=== PATIENT | male | born 1955 | race Caucasian/White ===

== ENCOUNTER 2016-03-30 11:41 | Emergency (ER) | payer OTHER ==
[~2016-03-30] VITALS: Wt 104.0 kg
--- NOTE | 2016-03-30 12:29 | RADRPT ---
PROCEDURE: US Lower extremity Venous. CLINICAL INDICATION: Left leg swelling TECHNIQUE: Multiple sonographic images of the left lower extremity deep venous system was obtained utilizing grayscale, color-flow, compressive sonography and doppler imaging with augmentation. The images were reviewed on a PACS workstation. COMPARISON: None. FINDINGS: There is normal compressibility and flow within the left common femoral, superficial femoral, fitness director ior tibial, peroneal and popliteal veins. RPTAT: AA IMPRESSION: No sonographic evidence for deep venous thrombosis. .Ashutosh Tan MD, MD Date Time Electronically viewed and signed by .Ashutosh Tan MD, on 03/30/2016 12:29 .S/
[2016-03-30] MEDS ORDERED: IBUP800T25 PO (12:35)
[2016-03-30] MEDS ORDERED: DIAZ5TAB4 PO (12:35)
--- NOTE | 2016-03-30 12:35 | ERD ---
ER Documentation Chief Complaint Date/Time DATE: 03/30/16 TIME: 12:32 Chief Complaint LEFT LOWER LEG PAIN PROGRESSIVE FOR 4 WKS. NO SOB NO CP. HPI This is a 60-year-old male who presents to the emergency room for evaluation of left leg pain. The patient states he has had pain for 4 weeks duration. He denies any trauma. He says it is an achy pain which radiates sometimes to his calf. The patient was seen in urgent care and was referred to the emergency room for rule out DVT. This patient does state that he has had to recent trips where he has been in a car for a long period of time. He is not on any hormones , no recent surgery. The patient came to the ER for evaluation. He is denying any chest pain or palpitations or shortness of breath at this time. ROS All systems reviewed and are negative except as per history of present illness. PMhx/Soc History of Surgery: Yes (TONSILLECTOMY , APPY ) Anesthesia Reaction: No Hx Neurological Disorder: No Hx Respiratory Disorders: No Hx Cardiac Disorders: Yes (HTN ) Hx Psychiatric Problems: Yes (DEPRESSION ) Hx Miscellaneous Medical Probl: Yes Hx Alcohol Use: No Hx Substance Use: No Hx Tobacco Use: No Smoking Status: Former smoker Physical Exam Vitals Vital Signs Date Time Temp Pulse Resp B/P Pulse Ox O2 Delivery O2 Flow Rate FiO2 03/30/16 11:44 98.4 59 21 160/94 100 Physical Exam INITIAL VITAL SIGNS: Reviewed by me GENERAL: The patient is well developed and appropriate for usual state of health in no apparent distress HEENT: Pupils equal, round, and reactive to light. EOMI. There is no scleral icterus. NECK: C-spine is soft and supple, there is no meningismus. There is no cervical lymphadenopathy. LUNGS: Clear to auscultation bilaterally. There are no rales, wheezes or rhonchi. HEART: Regular rate and rhythm, no murmurs, clicks, rubs or gallops. ABDOMEN: Soft, non-tender, non-distended. There are bowel sounds in all four quadrants. No rebound or guarding. EXTREMITIES: No calf swelling or tenderness, there is no peripheral cyanosis or edema. No focal swelling or erythema. NEUROLOGICAL: The patient moves all four extremities with 5/5 strength. Cranial nerves II - XII are intact. Normal gait. Alert and oriented SKIN: There is no apparent rash or petechiae. HEME/LYMPHATIC: There is no evidence of excessive bruising or lymphedema. PSYCHIATRIC: The patient does not appear anxious or depressed. Procedures/MDM Ultrasound left lower extremity: No DVT This 60-year-old male presents to the ER for left lower extremity pain and achiness. The patient denies any trauma to the area. He was referred to the ER for rule out DVT. He does have risk factors for possible DVT due to the fact that he is a too long car trips in the past month. The patient had no calf tenderness on my examination. An ultrasound does not reveal any DVT. This patient will be discharged home at this time with a prescription for Motrin , and Valium to take at nighttime for muscle spasms. Departure Diagnosis: Primary Impression: Pain of left leg Additional Impression: Muscular pain Condition: Stable JAIME MEDINA DO Mar 30, 2016 12:35
[2016-03-30 12:49] VITALS: BP 140/83; PULSE 63; RESP 20; TEMP 98.3
== END 2016-03-30 12:51 | disposition home or self-care (01) ==
LOC: E/R 11:41
DX: M79.605 Pain in left leg (principal); M79.1 Myalgia; I10 Essential (primary) hypertension; Z87.891 Personal history of nicotine dependence
CPT/HCPCS: 93971; Z7502

== ENCOUNTER → 2017-08-03 | Emergency (ER) | END | disposition home or self-care (01) ==

== ENCOUNTER 2018-01-13 15:40 | Emergency (ER) | END 2018-01-13 19:38 | disposition home or self-care (01) ==

== ENCOUNTER 2018-03-15 10:51 | Emergency (ER) | payer OTHER ==
[~2018-03-15] VITALS: Ht 180.3 cm; Wt 97.5 kg
[~2018-03-15 10:51] MED LIST: AMLO5TAB4 PO; AMOX500C2 PO; DIAZ5TAB4 PO; FLUT9.9S NASAL; HYDR25TA6 PO; IBUP-1544 PO; LEVO88TA42 PO; LISI40TA3 PO; LORA-441 PO; TAMS-14 PO
[2018-03-15 10:57] VITALS: Ht 180.3 cm; Wt 97.5 kg
--- NOTE | 2018-03-15 11:03 | ERD ---
ER Documentation Chief Complaint Chief Complaint cath bag leaking, placed on 02/13/18 HPI 62-year-old male with a history of obstructive uropathy and chronic indwelling Shah presents the ED for evaluation of leaking leg bag. Otherwise asymptomatic. No abdominal pain, penile pain or discharge. No fevers or chills. ROS Reviewed and are negative except as per history of present illness. Medications Home Meds Active Scripts Hydrochlorothiazide* (Hydrochlorothiazide*) 25 Mg Tab, 25 MG PO DAILY, #30 TAB Prov:MARGAUX CHRISTENSEN MD 08/03/17 Lorazepam* (Ativan*) 0.5 Mg Tablet, 0.5 MG PO BID for 5 Days, #10 TAB Prov:MARGAUX CHRISTENSEN MD 08/03/17 Diazepam* (Diazepam*) 5 Mg Tablet, 5 MG PO QHS for 3 Days, #3 TAB Prov:JAIME MEDINA DO 03/30/16 Ibuprofen* (Ibuprofen*) 800 Mg Tablet, 800 MG PO Q8 for 10 Days, #30 TAB Prov:JAIME MEDINA DO 03/30/16 Reported Medications Fluticasone Propionate (Flonase Allergy Relief) 9.9 Ml [place].susp, 1 SPRAY NASAL BID, #1 BOTTLE TO EACH NOSTRIL 01/13/18 Lisinopril* (Lisinopril*) 40 Mg Tablet, 40 MG PO DAILY, #30 TAB 01/13/18 Tamsulosin Hcl* (Flomax*) 0.4 Mg Cap.er.24h, 0.4 MG PO DAILY, CAP 01/13/18 Amoxicillin* (Amoxicillin*) 500 Mg Cap, 500 MG PO Q8, #30 CAP 01/13/18 Levothyroxine Sodium* (Levoxyl*) 88 Mcg Tablet, 88 MCG PO BEFORE BREAKFAST, #30 TAB 01/13/18 Amlodipine Besylate* (Norvasc*) 5 Mg Tablet, 5 MG PO DAILY, TAB 01/13/18 Allergies Allergies: Coded Allergies: No Known Allergy (Unverified , 01/13/18) PMhx/Soc History of Surgery: Yes (TONSILLECTOMY , APPY ) Anesthesia Reaction: No Hx Neurological Disorder: No Hx Respiratory Disorders: No Hx Cardiac Disorders: Yes (HTN ) Hx Psychiatric Problems: Yes (DEPRESSION ) Hx Miscellaneous Medical Probl: Yes (hypothyroid ) Hx Alcohol Use: No Hx Substance Use: No Hx Tobacco Use: No Physical Exam Vitals Vital Signs Date Temp Pulse Resp B/P (MAP) Pulse Ox O2 O2 Flow FiO2 Time Delivery Rate 03/15/18 98.6 78 16 154/84 99 10:57 (107) Physical Exam Const: No acute distress Head: Atraumatic Eyes: Normal Conjunctiva ENT: Normal External Ears, Nose and Mouth. Neck: Full range of motion. No meningismus. Resp: Clear to auscultation bilaterally Cardio: Regular rate and rhythm, no murmurs Abd: Soft, non tender, non distended. Normal bowel sounds Skin: No petechiae or rashes Back: No midline or flank tenderness Ext: No cyanosis, or edema Neur: Awake and alert Psych: Normal Mood and Affect Procedures/MDM DOCUMENTS REVIEWED: ED nurse, Prior records MEDICAL DECISION MAKIN-year-old male with a history of obstructive uropathy and chronic indwelling Shah presents the ED for evaluation of leaking leg bag. Otherwise asymptomatic. Leg bag changed. No further leakage. No symptoms of UTI or catheter obstruction. Stable for discharge with precautionary instructiongs and outpatient urology followup as scheduled. Though the patient's latest blood pressure was elevated (>120/80), the patient has a known history of hypertension and urged to pursue adjustment of their medical therapy within a week with their primary care physician. Please refer to the medication reconciliation form for the current list of hypertensive medications. Departure Diagnosis: Primary Impression: Leakage from urinary catheter Encounter type: initial encounter Qualified Codes: T83.038A - Leakage of other urinary catheter, initial encounter Condition: Stable STACEY CEJA MD Mar 15, 2018 11:03
== END 2018-03-15 11:55 | disposition home or self-care (01) ==
LOC: E/R 10:51
DX: T83.038A Leakage of other urinary catheter, initial encounter (principal); I10 Essential (primary) hypertension; E03.9 Hypothyroidism, unspecified; Y73.2 Prosthetic and other implants, materials and accessory gastroenterology and urology devices associated with adverse incidents
CPT/HCPCS: 51702; Z7502

== ENCOUNTER 2018-05-01 11:15 | Inpatient (IN) | payer OTHER ==
[~2018-05-01] VITALS: Ht 180.3 cm; Wt 99.2 kg
[~2018-05-01 11:15] MED LIST changes: +CEFTRIAXONE 1 GM/NS 50 ML IVPB ONE
[2018-05-23] VITALS (23 sets, daily range): BP systolic 108–145; BP diastolic 63–95; PULSE 58–125; RESP 7–41; Ht 180.3 cm; Wt 99.2 kg
[2018-05-23] MEDS ORDERED: SEVOFLURANE 15 MIN ONE (07:00)
[2018-05-23] MEDS ORDERED: CEFTRIAXONE 1 GM/NS 50 ML IVPB ONE (10:00)
[2018-05-23] MEDS ORDERED: AZEL137S9 NASAL (11:13)
--- NOTE | 2018-05-23 12:22 | HPN ---
Date/Time of Note Date/Time of Note DATE: 05/23/18 TIME: 12:21 Interval H&P Admission Note Pt. seen H&P reviewed: No system changes SWAPNA FAUSTIN MD May 23, 2018 12:22
--- NOTE | 2018-05-23 12:36 | PREAC ---
Date/Time of Note Date/Time of Note DATE: 05/23/18 TIME: 12:35 Anesthesia Eval and Record Evaluation Time Pre-Procedure Interview DATE: 05/23/18 TIME: 12:35 Age 62 Sex male NPO: 8 hrs Preoperative diagnosis BPH Planned procedure TURP Past Medical History Past Medical History: Includes Cardio: HTN Endo: Hypothyroid Surgery & Anesthesia Issues No known issue Meds Anticoagulation: No Beta Milton within 24 hr: No Reason Beta Milton not given: Pt. not on B-[place] Reported Medications Azelastine Hcl* (Azelastine Hcl*) 137 Mcg/0.137 Ml [place].pump, 2 SPRAYS NASAL BID PRN for ALLERGIC REACTION, #1 EA TO EACH NOSTRIL 05/23/18 Fluticasone Propionate (Flonase Allergy Relief) 9.9 Ml [place].susp, 1 SPRAY NASAL BID, #1 BOTTLE TO EACH NOSTRIL 01/13/18 Lisinopril* (Lisinopril*) 40 Mg Tablet, 20 MG PO DAILY, #30 TAB 01/13/18 Levothyroxine Sodium* (Levoxyl*) 88 Mcg Tablet, 88 MCG PO BEFORE BREAKFAST, #30 TAB 01/13/18 Amlodipine Besylate* (Norvasc*) 5 Mg Tablet, 2.5 MG PO DAILY, TAB 01/13/18 Discontinued Reported Medications Tamsulosin Hcl* (Flomax*) 0.4 Mg Cap.er.24h, 0.4 MG PO DAILY, CAP 01/13/18 Amoxicillin* (Amoxicillin*) 500 Mg Cap, 500 MG PO Q8, #30 CAP 01/13/18 Discontinued Scripts Hydrochlorothiazide* (Hydrochlorothiazide*) 25 Mg Tab, 25 MG PO DAILY, #30 TAB Prov:MARGAUX CHRISTENSEN MD 08/03/17 Lorazepam* (Ativan*) 0.5 Mg Tablet, 0.5 MG PO BID for 5 Days, #10 TAB Prov:MARGAUX CHRISTENSEN MD 08/03/17 Diazepam* (Diazepam*) 5 Mg Tablet, 5 MG PO QHS for 3 Days, #3 TAB Prov:JAIME MEDINA DO 03/30/16 Ibuprofen* (Ibuprofen*) 800 Mg Tablet, 800 MG PO Q8 for 10 Days, #30 TAB Prov:JAIME MEDINA DO 03/30/16 Meds reviewed: Yes Allergies Coded Allergies: No Known Allergy (Unverified , 05/23/18) Allergies Reviewed: Yes Labs/Studies Labs Reviewed: Reviewed by anesthesiologist test: N/A Studies: ECG (n/a), CXR (n/a) Pre-procedure Exam Last vitals Vital Signs Date Temp Pulse Resp B/P (MAP) Pulse Ox O2 O2 Flow FiO2 Time Delivery Rate 05/23/18 98.4 64 16 126/81 97 11:27 (96) Airway: Adequate mouth opening, Adequate thyromental dist Mallampati: Mallampati II Teeth: Normal Lung: Normal Heart: Normal ASA Physical Status ASA physical status: 2 Emergency: None Planned Anesthetic General/MAC: ETT Planned Pain Management Parenteral pain med Pre-operative Attestations Prior to commencing anesthesia and surgery, the patient was re-evaluated, there was verification of: *The patient's identity *The results of appropriate recent lab work and preoperative vital signs *The above evaluation not changing prior to induction *Anesthetic plan, risk benefits, alternative and complications discussed with patient/family; questions answered; patient/family understands, accepts and wishes to proceed. AURY DEL ROSARIO MD May 23, 2018 12:36
[2018-05-23] MEDS ORDERED: PROPOFOL 20 ML ONE (12:39)
[2018-05-23] MEDS ORDERED: FENTAnyl 50 MCG/ML VIAL ONE (12:39)
[2018-05-23] MEDS ORDERED: ROCURONIUM 50 MG INJ ONE (12:39)
[2018-05-23] MEDS ORDERED: MIDAZOLAM 1 MG/ML 2 ML INJ ONE (12:39)
[2018-05-23] MEDS ORDERED: KETOROLAC 30 MG INJ ONE (13:27)
[2018-05-23] MEDS ORDERED: PHENYLephrine (100 MCG/ML) 10ML SYG ONE (13:27)
[2018-05-23] MEDS ORDERED: METOCLOPRAMIDE 10 MG INJ ONE (13:27)
[2018-05-23] MEDS ORDERED: DEXAMETHASONE 4 MG/ML 5 ML INJ ONE (13:27)
[2018-05-23] MEDS ORDERED: ONDANSETRON 4 MG INJ ONE (13:27)
[2018-05-23] MEDS ORDERED: EPHEDrine SULFATE 50 MG/5 ML SYG IV PRN (13:30)
[2018-05-23] MEDS ORDERED: ONDANSETRON 4 MG INJ IV PRN (13:30)
[2018-05-23] MEDS ORDERED: HYDROmorphONE 1 MG/5 ML IV SYRINGE IV PRN ×3 (13:30)
[2018-05-23] MEDS ORDERED: FENTAnyl 50 MCG/ML VIAL IV PRN ×3 (13:30)
[2018-05-23] MEDS ORDERED: hydrALAzine 20 MG INJ IV PRN (13:30)
[2018-05-23] MEDS ORDERED: METOCLOPRAMIDE 10 MG INJ IV PRN (13:30)
[2018-05-23] MEDS ORDERED: OXYCODONE/ACETAMINOPHEN (5/325) TAB PO PRN (13:30)
[2018-05-23] MEDS ORDERED: LABETALOL HCL 20MG INJ IV PRN (13:30)
[2018-05-23] MEDS ORDERED: GLYCOPYRROLATE 0.4 MG INJ ONE (13:38)
[2018-05-23] MEDS ORDERED: NEOSTIGMINE 3 MG/3 ML SYRINGE ONE (13:39)
--- NOTE | 2018-05-23 13:54 | OPR ---
Date/Time of Note Date/Time of Note DATE: 05/23/18 TIME: 13:49 Operative Report Procedure Date: May 23, 2018 Preoperative Diagnosis Benign prostatic hypertrophy and urinary retention Postoperative Diagnosis Same pending pathology report Operation/Procedure Performed Trans-urethral resection of the prostate Surgeon see signature line Flatwork Washer Pasha Patterson Anesthesia Type: general Anesthesiologist: AURY DEL ROSARIO MD Estimated Blood Loss: 50 - 100 ml's Transfusion none Specimen Prostatic tissue and urine culture Grafts/Implants none Complications none Pt Condition Post Procedure: stable Disposition: PACU Indications Benign prostatic hypertrophy and urinary retention not responding to medications Procedure Description The patient was brought to the operating room and general anesthesia was induced. Timeout was done, the patient was identified by his name, birthdate and the procedure. The patient was given 1 g of ceftriaxone IV at the start of the procedure. The Shah catheter that he had was removed. The genital area was then prepped and draped in the usual sterile manner. Cystoscopy was done with a 22 [place] cystoscope and it showed prostatic enlargement with obstruction. The bladder was trabeculated. There was no bladder tumors or stones. Urine was collected for culture and sensitivity. The cystoscope was then removed and the urethra was dilated with the [place] dilators up to #30 Mongolian. The 26 Mongolian bipolar resectoscope sheath was then introduced under direct vision through the penile urethra all the way to the bladder. Then the resection of the prostate was started. First the median lobe was resected then the right lateral lobe then the left lateral lobe and finally the anterior lobe as well as apical tissue. All the bleeders were electrocoagulated. All the prostatic chips were evacuated. Good hemostasis was obtained. The ureteral orifices as well as external sphincter were intact and safeguarded during the whole procedure. At the end of the procedure the resectoscope was removed and #24 [place]ian three-way Shah catheter was inserted into the bladder. The balloon was inflated with 45 mL of sterile water. The catheter was connected to a drainage bag and continuous bladder irrigation was started in the operating room with normal saline. The patient was transferred to the recovery room in stable and satisfactory condition. SWAPNA FAUSTIN MD May 23, 2018 13:54
[2018-05-23] MEDS ORDERED: DOCUSATE SODIUM 100 MG CAP PO PRN (14:00)
[2018-05-23] MEDS ORDERED: MAGNESIUM HYDROXIDE 30ML CUP PO PRN (14:00)
--- NOTE | 2018-05-23 14:10 | PAC ---
Date/Time of Note Date/Time of Note DATE: 05/23/18 TIME: 14:10 Post-Anesthesia Notes Post-Anesthesia Note Last documented vital signs Vital Signs Date Temp Pulse Resp B/P (MAP) Pulse Ox O2 O2 Flow FiO2 Time Delivery Rate 05/23/18 98.4 64 16 126/81 97 14:07 (96) Activity: WNL Respiratory function: WNL Cardiovascular function: WNL Mental status: Baseline Pain reasonably controlled: Yes Hydration appropriate: Yes Nausea/Vomiting absent: Yes AURY DEL ROSARIO MD May 23, 2018 14:10
--- NOTE | 2018-05-23 15:37 | HP ---
Date/Time of Note Date/Time of Note DATE: 05/23/18 TIME: 15:35 Assessment/Plan VTE Prophylaxis Risk score (from Nsg)>0 risk: 4 SCD applied (from Ns): Yes Pharmacological prophylaxis: NA/contraindicated Pharm contraindication: surgical contra Lines/Catheters IV Catheter Type (from Nrsg): Peripheral IV Assessment/Plan Hospital Course 1. BPH status post TURP postop day 0 Bladder irrigation overnight Pain control 2. Hypertension Continue home meds 3. Hypothyroidism Continue home Synthroid Prophylaxis: SCDs HPI/ROS Admit Date/Time Admit Date/Time May 23, 2018 at 10:33 Hx of Present Illness Patient is a 62-year-old male with a history of hypertension, hypothyroidism, BPH who presents for elective TURP. Patient currently has no complaints and is receiving continuous bladder irrigation. ROS Constitutional: no complaints, improved Eyes: no complaints ENT: no complaints Respiratory: no complaints Cardiovascular: no complaints Gastrointestinal: no complaints Genitourinary: no complaints Musculoskeletal: no complaints Skin: no complaints Neurologic: no complaints Endocrine: no complaints Lymphatic: no complaints Psychological: no complaints, nl mood/affect Immunologic: no complaints PMH/Family/Social Past Medical History Hypertension, hypothyroidism, BPH Medications Current Medications Hydromorphone HCl (Dilaudid) 0.2 mg PACU PRN IV MILD PAIN 1-3; Start 05/23/18 at 13:30; Stop 05/23/18 at 17:30 Hydromorphone HCl (Dilaudid) 0.4 mg PACU PRN IV MOD PAIN 4-6; Start 05/23/18 at 13:30; Stop 05/23/18 at 17:30 Hydromorphone HCl (Dilaudid) 0.6 mg PACU PRN IV SEVERE PAIN 7-10; Start 05/23/18 at 13:30; Stop 05/23/18 at 17:30 Fentanyl (Sublimaze) 25 mcg PACU ORDER PRN IV MILD PAIN 1-3; Start 05/23/18 at 13:30; Stop 05/23/18 at 17:30 Fentanyl (Sublimaze) 50 mcg PACU ORDER PRN IV MOD PAIN 4-6 Last administered on 05/23/18at 14:14; Admin Dose 50 MCG; Start 05/23/18 at 13:30; Stop 05/23/18 at 17:30 Fentanyl (Sublimaze) 75 mcg PACU ORDER PRN IV SEVERE PAIN 7-10; Start 05/23/18 at 13:30; Stop 05/23/18 at 17:30 Oxycodone/ Acetaminophen (Percocet (5/ 325)) 1 tab PACU ORDER PRN PO .PAIN 1-5; Start 05/23/18 at 13:30; Stop 05/23/18 at 17:30 Ondansetron HCl (Zofran Inj) 4 mg PACU ORDER PRN IV NAUSEA/VOMITING Last administered on 05/23/18at 14:16; Admin Dose 4 MG; Start 05/23/18 at 13:30; Stop 05/23/18 at 17:30 Metoclopramide HCl (Reglan) 10 mg PACU ORDER PRN IV NAUSEA/VOMITING; Start 05/23/18 at 13:30; Stop 05/23/18 at 17:30 Labetalol HCl (Labetalol) 5 mg PACU ORDER PRN IV HIGH BLOOD PRESSURE; Start 05/23/18 at 13:30; Stop 05/23/18 at 17:30 Hydralazine HCl (Apresoline) 5 mg PACU ORDER PRN IV HIGH BLOOD PRESSURE; Start 05/23/18 at 13:30; Stop 05/23/18 at 17:30 Ephedrine Sulfate 5 mg PACU ORDER PRN IV BLOOD PRESSURE SUPPORT; Start 05/23/18 at 13:30; Stop 05/23/18 at 17:30 Dextrose/Sodium Chloride 1,000 ml @ 50 mls/hr Q20H IV ; Start 05/23/18 at 13:44 Docusate Sodium (Colace) 100 mg BID PRN PO CONSTIPATION; Start 05/23/18 at 14:00 Magnesium Hydroxide (Milk Of Mag) 30 ml DAILY PRN PO CONSTIPATION; Start at 14:00 Amlodipine Besylate (Norvasc) 2.5 mg DAILY PO ; Start 05/23/18 at 15:00 Fluticasone Propionate (Flonase 0.05% Nasal) 1 spray BID NASAL ; Start 05/23/18 at 14:00 Levothyroxine Sodium (Synthroid) 88 mcg BEFORE BREAKFAST PO ; Start 05/24/18 at 07:00 Lisinopril (Zestril) 20 mg DAILY PO ; Start 4/12/19 at 14:00 Ceftriaxone Sodium 50 ml @ 100 mls/hr Q24H IVPB ; Start 05/23/18 at 16:00 Coded Allergies: No Known Allergy (Unverified , 05/23/18) Family History Significant Family History: no pertinent family hx Social History Alcohol Use: rarely Smoking Status: Former smoker Drug Use: none Exam/Review of Systems Vital Signs Vitals Vital Signs Date Temp Pulse Resp B/P (MAP) Pulse Ox O2 O2 Flow FiO2 Time Delivery Rate 05/23/18 70 16 130/82 94 Room Air 14:33 (98) 05/23/18 98.3 13:53 05/23/18 8.0 13:53 Exam Constitutional: alert, oriented Respiratory: clear to auscultation Cardiovascular: regular rate and rhythm Gastrointestinal: soft; No distended Musculoskeletal: nl extremities to inspection MANUELA RENDON May 23, 2018 15:37
[2018-05-23] MEDS: LISINOPRIL 20 MG TAB PO SCH (16:41)
[2018-05-23] MEDS: DEXTROSE 5%-0.45% NACL 1,000 ML IV SCH (17:06)
[2018-05-23] MEDS: AMLODIPINE 2.5 MG TAB PO SCH (17:07)
[2018-05-23] MEDS: CEFTRIAXONE 1 GM/NS 50 ML IVPB SCH (17:08)
[2018-05-23] MEDS: FLUTICASONE 0.05% 16 GM NAS SPRAY NASAL SCH ×2 (21:00→22:31)
[2018-05-24 00:10] VITALS: BP 114/69; PULSE 68; RESP 16
[2018-05-24] MEDS ORDERED: LEVOTHYROXINE 88 MCG TAB PO SCH (07:00)
[2018-05-24 07:47] VITALS: BP 122/73; PULSE 71; RESP 18
[2018-05-24] MEDS ORDERED: CEFTRIAXONE 1 GM INJ IVPB SCH (09:00)
[2018-05-24] MEDS: LISINOPRIL 20 MG TAB PO SCH (09:55)
[2018-05-24] MEDS: FLUTICASONE 0.05% 16 GM NAS SPRAY NASAL SCH (09:56)
[2018-05-24] MEDS: AMLODIPINE 2.5 MG TAB PO SCH (10:02)
[2018-05-24] MEDS: DEXTROSE 5%-0.45% NACL 1,000 ML IV SCH (10:04)
[2018-05-24] MEDS ORDERED: DIPHENHYDRAMINE 25 MG CAP PO PRN (11:00)
--- NOTE | 2018-05-24 11:41 | PN ---
Date/Time of Note Date/Time of Note DATE: 05/24/18 TIME: 11:40 Assessment/Plan VTE Prophylaxis Risk score (from Ns)>0 risk: 7 SCD applied (from Ns): Yes Pharmacological prophylaxis: NA/contraindicated Pharm contraindication: surgical contra Lines/Catheters IV Catheter Type (from Nrs): Peripheral IV Assessment/Plan Hospital Course 1. BPH status post TURP postop day 1 Patient is receiving bladder irrigation, no significant hematuria noted Pain control 2. Hypertension Continue home meds 3. Hypothyroidism Continue home Synthroid Prophylaxis: SCDs DC planning: Likely DC per urology today Result Diagram: 05/24/18 0439 Results 24hrs Laboratory Tests Test 05/24/18 04:39 05/24/18 07:19 White Blood Count 11.7 H Red Blood Count 4.26 L Hemoglobin 12.8 L Hematocrit 37.9 L Mean Corpuscular Volume 89.0 Mean Corpuscular Hemoglobin 30.0 Mean Corpuscular Hemoglobin Concent 33.8 Red Cell Distribution Width 12.1 Platelet Count 215 # Mean Platelet Volume 11.1 H Immature Granulocytes % 0.400 Neutrophils % 91.6 H Lymphocytes % 7.0 L Monocytes % 0.9 Eosinophils % 0.0 Basophils % 0.1 Nucleated Red Blood Cells % 0.0 Immature Granulocytes # 0.050 H Neutrophils # 10.7 H Lymphocytes # 0.8 Monocytes # 0.1 L Eosinophils # 0.0 Basophils # 0.0 Nucleated Red Blood Cells # 0.0 Phosphorus Level 3.4 Magnesium Level 2.1 Lab Scanned Report REFERENCE LAB Subjective 24 Hr Interval Summary Constitutional: no complaints Exam/Review of Systems Exam Vitals Vital Signs Date Temp Pulse Resp B/P (MAP) Pulse Ox O2 O2 Flow FiO2 Time Delivery Rate 05/24/18 98.3 71 18 122/73 96 Room Air 07:47 (89) 05/23/18 8.0 13:53 Intake and Output 05/23/18 05/23/18 05/24/18 1515:00 23:00 07:00 IntakeIntake Total 1500 ml 600 ml OutputOutput Total 5 ml 5800 ml BalanceBalance 1495 ml -5800 ml 600 ml Constitutional: alert, oriented Respiratory: clear to auscultation Cardiovascular: regular rate and rhythm Gastrointestinal: soft; No distended Musculoskeletal: nl extremities to inspection Results Results 24hrs Laboratory Tests Test 05/24/18 04:39 05/24/18 07:19 White Blood Count 11.7 H Red Blood Count 4.26 L Hemoglobin 12.8 L Hematocrit 37.9 L Mean Corpuscular Volume 89.0 Mean Corpuscular Hemoglobin 30.0 Mean Corpuscular Hemoglobin Concent 33.8 Red Cell Distribution Width 12.1 Platelet Count 215 # Mean Platelet Volume 11.1 H Immature Granulocytes % 0.400 Neutrophils % 91.6 H Lymphocytes % 7.0 L Monocytes % 0.9 Eosinophils % 0.0 Basophils % 0.1 Nucleated Red Blood Cells % 0.0 Immature Granulocytes # 0.050 H Neutrophils # 10.7 H Lymphocytes # 0.8 Monocytes # 0.1 L Eosinophils # 0.0 Basophils # 0.0 Nucleated Red Blood Cells # 0.0 Phosphorus Level 3.4 Magnesium Level 2.1 Lab Scanned Report REFERENCE LAB Medications Medication Current Medications Dextrose/Sodium Chloride 1,000 ml @ 50 mls/hr Q20H IV Last administered on 05/24/18at 10:04; Admin Dose 50 MLS/HR; Start 05/23/18 at 13:44 Docusate Sodium (Colace) 100 mg BID PRN PO CONSTIPATION; Start 05/23/18 at 14:00 Magnesium Hydroxide (Milk Of Mag) 30 ml DAILY PRN PO CONSTIPATION; Start 05/23/18 at 14:00 Fluticasone Propionate (Flonase 0.05% Nasal) 1 spray BID NASAL Last administered on 05/24/18at 09:56; Admin Dose 1 SPRAY; Start 05/23/18 at 14:00 Levothyroxine Sodium (Synthroid) 88 mcg BEFORE BREAKFAST PO Last administered on 05/24/18at 10:11; Admin Dose 88 MCG; Start 05/24/18 at 07:00 Lisinopril (Zestril) 20 mg DAILY PO Last administered on 05/24/18at 09:55; Admin Dose 20 MG; Start 05/23/18 at 14:00 Ceftriaxone Sodium 50 ml @ 100 mls/hr Q24H IVPB Last administered on 05/23/18at 17:08; Admin Dose 100 MLS/HR; Start 05/23/18 at 16:00 Amlodipine Besylate (Norvasc) 2.5 mg DAILY@2100 PO ; Start 05/24/18 at 21:00 Diphenhydramine HCl (Benadryl) 25 mg Q8H PRN PO ITCHING Last administered on 05/24/18at 11:18; Admin Dose 25 MG; Start 05/24/18 at 11:00 MANUELA RENDON May 24, 2018 11:41
[2018-05-24 14:48] VITALS: BP 112/65; PULSE 74; RESP 18
[2018-05-24] MEDS: CEFTRIAXONE 1 GM/NS 50 ML IVPB SCH (16:58)
--- NOTE | 2018-05-24 18:24 | PDOCDIS ---
Discharge Instructions CONDITION [id number] Patient Condition: [id number] Good HOME CARE INSTRUCTIONS: [id number] Diet Instructions: [id number] Regular ACTIVITY: [id number] Activity Restrictions: [id number] Slowly Increase Activity Rest between Activity Avoid heavy lifting No Sexual Activity Do not Drive Do not operate Machinery Avoid Heavy Housework [id number] Bathing Restrictions: [id number] Shower (May take a shower, just dry the tubing and the drainage bag when you are done) FOLLOW UP/APPOINTMENTS Follow-up Plan Follow-up with next week on Saturday or to remove the Shah catheter. Call [phone] for an appointment on Saturday SWAPNA FAUSTIN MD May 24, 2018 18:24
--- NOTE | 2018-05-24 18:28 | DS ---
Date/Time of Note Date/Time of Note DATE: 05/24/18 TIME: 18:26 Discharge Summary Admission/Discharge Info Admit Date/Time May 23, 2018 at 10:33 Discharge Date/Time May 24, 2018 1830 p.m. Discharge Diagnosis Benign prostatic hypertrophy and urinary retention, pending pathology report Patient Condition: Good Hospital Course Patient underwent transurethral resection of the prostate on 05/23/2018. He had continuous bladder irrigation and the return from the irrigation today is water clear. Therefore the irrigation was stopped and the irrigation port was plugged with a catheter plug. The Shah catheter is connected to a leg bag. The patient will be discharged home with the Shah and the leg bag and come to the office in about 4-5 days to remove the Shah catheter. Home Meds Reported Medications Azelastine Hcl* (Azelastine Hcl*) 137 Mcg/0.137 Ml [place].pump, 2 SPRAYS NASAL BID PRN for ALLERGIC REACTION, #1 EA TO EACH NOSTRIL 05/23/18 Fluticasone Propionate (Flonase Allergy Relief) 9.9 Ml [place].susp, 1 SPRAY NASAL BID, #1 BOTTLE TO EACH NOSTRIL 01/13/18 Lisinopril* (Lisinopril*) 40 Mg Tablet, 20 MG PO DAILY, #30 TAB 01/13/18 Levothyroxine Sodium* (Levoxyl*) 88 Mcg Tablet, 88 MCG PO BEFORE BREAKFAST, #30 TAB 01/13/18 Amlodipine Besylate* (Norvasc*) 5 Mg Tablet, 2.5 MG PO DAILY, TAB 01/13/18 Discontinued Reported Medications Tamsulosin Hcl* (Flomax*) 0.4 Mg Cap.er.24h, 0.4 MG PO DAILY, CAP 01/13/18 Amoxicillin* (Amoxicillin*) 500 Mg Cap, 500 MG PO Q8, #30 CAP 01/13/18 Discontinued Scripts Hydrochlorothiazide* (Hydrochlorothiazide*) 25 Mg Tab, 25 MG PO DAILY, #30 TAB Prov:MARGAUX CHRISTENSEN MD 08/03/17 Lorazepam* (Ativan*) 0.5 Mg Tablet, 0.5 MG PO BID for 5 Days, #10 TAB Prov:MARGAUX CHRISTENSEN MD 08/03/17 Diazepam* (Diazepam*) 5 Mg Tablet, 5 MG PO QHS for 3 Days, #3 TAB Prov:ADAMJAIME ARMENTA 03/30/16 Ibuprofen* (Ibuprofen*) 800 Mg Tablet, 800 MG PO Q8 for 10 Days, #30 TAB Prov:JAIME MEDINA 03/30/16 Follow-up Plan Follow-up with next week on Saturday or to remove the Shah catheter. Call [phone] for an appointment on Saturday Primary Care Provider [facility] Time spent on discharge: < 30 minutes Pending Labs Laboratory Tests Test 05/24/18 04:39 05/24/18 07:19 05/24/18 13:23 White Blood Count 11.7 10^3/ul (4.8-10.8) Red Blood Count 4.26 10^6/ul (4.70-6.10) Hemoglobin 12.8 g/dl (14.0-18.0) Hematocrit 37.9 % (42.0-52.0) Mean Corpuscular 89.0 Volume fl (82.0-101.0) Mean Corpuscular 30.0 pg (29.0-33.0) Hemoglobin Mean Corpuscular 33.8 Hemoglobin Concent g/dl (32.0-37.0) Red Cell 12.1 % (11.5-14.5) Distribution Width Platelet Count 215 10^3/UL (140-415) Mean Platelet 11.1 fl (7.4-10.4) Volume Immature 0.400 Granulocytes % % (0.001-0.429) Neutrophils % 91.6 % (39.0-77.0) Lymphocytes % 7.0 % (15.0-51.0) Monocytes % 0.9 % (0.0-11.0) Eosinophils % 0.0 % (0.0-7.0) Basophils % 0.1 % (0.0-2.0) Nucleated Red Blood 0.0 Cells % /100WBC (0.0-0.0) Immature 0.050 Granulocytes # 10^3/ul (0.0-0.031) Neutrophils # 10.7 10^3/ul (1.6-7.5) Lymphocytes # 0.8 10^3/ul (0.8-2.9) Monocytes # 0.1 10^3/ul (0.3-0.9) Eosinophils # 0.0 10^3/ul (0.0-0.5) Basophils # 0.0 10^3/ul (0.0-0.1) Nucleated Red Blood 0.0 Cells # 10^3/ul (0.0-0.0) Phosphorus Level 3.4 mg/dl (2.5-4.9) Magnesium Level 2.1 mg/dl (1.7-2.5) Lab Scanned Report [facility] [id number] Sodium Level 138 mmol/L (135-144) Potassium Level 4.6 mmol/L (3.5-5.1) Chloride Level 101 mmol/L (97-110) Carbon Dioxide 27 mmol/L (21-31) Level Anion Gap 10 (5-13) Blood Urea 29 mg/dl (7-20) Nitrogen Creatinine 1.40 mg/dl (0.61-1.24) Est Glomerular 52 mL/min (>60) Filtrat Rate mL/min Glucose Level 157 mg/dl (70-220) Calcium Level 9.6 mg/dl (8.4-10.2) SWAPNA FAUSTIN MD May 24, 2018 18:28
[2018-05-24 19:38] VITALS: BP 134/71; PULSE 71; RESP 20
[2018-05-24] MEDS ORDERED: AMLODIPINE 2.5 MG TAB PO SCH (21:00)
== END 2018-05-24 20:45 | disposition home or self-care (01) | DRG 714 ==
LOC: EDSTATUS 12:30 → REC 05-23 10:33 → MS1 05-23 16:49
PROVIDERS: ADMIT Urology; ATTEND Urology
PROC: 0VB08ZZ Excision of Prostate, Via Natural or Artificial Opening Endoscopic (ICD-10-PCS; principal; 2018-05-23 12:30)
DX: N40.1 Benign prostatic hyperplasia with lower urinary tract symptoms (principal); I10 Essential (primary) hypertension; E03.9 Hypothyroidism, unspecified; Z87.891 Personal history of nicotine dependence
CPT/HCPCS: 80048; 83735; 84100; 85025; 87086; 88305; J0696; J1100; J1170; J1885; J2250; J2370; J2405; J2710; J2765; J3010; J7042

== ENCOUNTER 2018-08-21 10:01 | Day surgery (SDC) | payer OTHER ==
[~2018-08-21] VITALS: Ht 180.3 cm; Wt 99.6 kg
[~2018-08-21 10:01] MED LIST changes: -AMOX500C2 PO; +AZEL137S9 NASAL; -CEFTRIAXONE 1 GM/NS 50 ML IVPB ONE; -DIAZ5TAB4 PO; -HYDR25TA6 PO; -IBUP-1544 PO; -LORA-441 PO; -TAMS-14 PO
[2018-08-21 11:08] VITALS: Ht 180.3 cm; Wt 99.6 kg
[2018-08-21] MEDS ORDERED: LIDOCAINE 2% (SDV) 5 ML INJ ONE (11:56)
[2018-08-21] MEDS ORDERED: PROPOFOL 40 ML ONE (11:56)
[2018-08-21 11:58] VITALS: BP 157/83; PULSE 59; RESP 20
--- NOTE | 2018-08-21 12:04 | PREAC ---
Date/Time of Note Date/Time of Note DATE: 08/21/18 TIME: 12:01 Anesthesia Eval and Record Evaluation Time Pre-Procedure Interview DATE: 08/21/18 TIME: 12:01 Age 62 Sex male NPO: 8 hrs Preoperative diagnosis screening Planned procedure colonoscopy Past Medical History Past Medical History: Includes (enlarged prostate; self caths) Cardio: HTN Endo: Hypothyroid Renal: CKD GI: Obesity Surgery & Anesthesia Issues No known issue Meds Anticoagulation: No Beta [place] within 24 hr: No Reason Beta [place] not given: Pt. not on B-[place] Reported Medications Azelastine Hcl* (Azelastine Hcl*) 137 Mcg/0.137 Ml [place].pump, 2 SPRAYS NASAL BID PRN for ALLERGIC REACTION, #1 EA TO EACH NOSTRIL 05/23/18 Fluticasone Propionate (Flonase Allergy Relief) 9.9 Ml [place].susp, 1 SPRAY NASAL BID, #1 BOTTLE TO EACH NOSTRIL 01/13/18 Lisinopril* (Lisinopril*) 40 Mg Tablet, 20 MG PO DAILY, #30 TAB 01/13/18 Levothyroxine Sodium* (Levoxyl*) 88 Mcg Tablet, 88 MCG PO BEFORE BREAKFAST, #30 TAB 01/13/18 Amlodipine Besylate* (Norvasc*) 5 Mg Tablet, 2.5 MG PO DAILY, TAB 01/13/18 Meds reviewed: Yes Allergies Coded Allergies: No Known Allergy (Unverified , 05/23/18) Allergies Reviewed: Yes Labs/Studies Labs Reviewed: Reviewed by anesthesiologist test: N/A Pre-procedure Exam Last vitals Vital Signs Date Temp Pulse Resp B/P (MAP) Pulse Ox O2 O2 Flow FiO2 Time Delivery Rate 08/21/18 98.2 59 20 157/83 98 Room Air 11:58 (107) Airway: Adequate mouth opening, Adequate thyromental dist Mallampati: Mallampati II Teeth: Abnormal (missing L lower molar) Lung: Normal Heart: Normal ASA Physical Status ASA physical status: 2 Emergency: None Planned Anesthetic General/MAC: MAC Pre-operative Attestations Prior to commencing anesthesia and surgery, the patient was re-evaluated, there was verification of: *The patient's identity *The results of appropriate recent lab work and preoperative vital signs *The above evaluation not changing prior to induction *Anesthetic plan, risk benefits, alternative and complications discussed with patient/family; questions answered; patient/family understands, accepts and wishes to proceed. CHAD LEBRON Aug 21, 2018 12:04
--- NOTE | 2018-08-21 12:45 | PAC ---
Date/Time of Note Date/Time of Note DATE: 08/21/18 TIME: 12:43 Post-Anesthesia Notes Post-Anesthesia Note Last documented vital signs Vital Signs Date Temp Pulse Resp B/P (MAP) Pulse Ox O2 O2 Flow FiO2 Time Delivery Rate 08/21/18 98.2 98 59 54 20 16 157/83 98 98 Room 11:58 123 (107) 123 Air face 3 /70 mask 8L Activity: WNL Respiratory function: WNL Cardiovascular function: WNL Mental status: Baseline Pain reasonably controlled: Yes Hydration appropriate: Yes Nausea/Vomiting absent: Yes CHAD LEBRON Aug 21, 2018 12:45
[2018-08-21 13:21] VITALS: BP 12/75; RESP 18
== END 2018-08-22 08:47 | disposition home or self-care (01) ==
LOC: GIL 10:01
PROVIDERS: ATTEND Internal Medicine Gastroenterology
DX: Z12.11 Encounter for screening for malignant neoplasm of colon (principal); D12.5 Benign neoplasm of sigmoid colon; K64.8 Other hemorrhoids
CPT/HCPCS: 45380; 88305; Z7610